=== PATIENT | male | born 1955 | race Caucasian/White ===

== ENCOUNTER → 2017-02-22 | Outpatient (CLI) | payer OTHER ==
[~2017-02-22] MED LIST: BISA-49 PO; FURO20TA3 PO; LEVO100T5 PO; LEVO125T5 PO; METO50TA82 PO; MULT-658 PO; VALS1TAB28 PO
== END | disposition home or self-care (01) ==
LOC: RAD 12:44
PROVIDERS: ATTEND Internal Medicine Cardiovascular Disease
DX: I10 Essential (primary) hypertension (principal); R07.89 Other chest pain
CPT/HCPCS: 78452; 93017; A9502

== ENCOUNTER 2017-05-17 10:25 | Inpatient (IN) | payer OTHER ==
[~2017-05-17] VITALS: Ht 175.3 cm; Wt 121.0 kg
[~2017-05-17 10:25] MED LIST changes: +BUPIVACAINE/PF-EPI 0.5% 1:200K ONE; +TAMS-11 PO
[2017-05-17] MEDS ORDERED: LACTATED RINGERS 1,000 ML IV SCH (10:58)
[2017-05-17 11:03] VITALS: BP 138/75
[2017-05-17] MEDS ORDERED: SCOPOLAMINE PATCH, 1.5MG PATCH.TD72 TD ONE ×3 (11:25→14:30)
[2017-05-17] MEDS ORDERED: SUGAMMADEX 200 MG/2 ML IVPush ONE ×2 (12:00→14:30)
[2017-05-17] MEDS ORDERED: MIDAZOLAM 1 MG/ML, 2ML ONE (12:11)
[2017-05-17] MEDS ORDERED: FENTANYL PF 250 MCG/5ML ONE (12:11)
[2017-05-17] MEDS ORDERED: METOCLOPRAMIDE 5 MG/ML, 2ML IV PRN (14:00)
[2017-05-17] MEDS ORDERED: ACETAMINOPHEN 325 MG TABLET PO PRN (14:00)
[2017-05-17] MEDS ORDERED: OXYcodone 5 MG/5 ML ORAL.SOL UDC PO PRN (14:00)
[2017-05-17] MEDS ORDERED: ONDANSETRON 2MG/ML, 2ML IVPush PRN ×2 (14:00→14:30)
[2017-05-17] MEDS ORDERED: LABETALOL 5MG/ML, 20ML IV PRN (14:00)
[2017-05-17] MEDS ORDERED: hydrALAzine 20 MG/ML, 1ML IV PRN (14:00)
[2017-05-17] MEDS: LACTATED RINGERS 1,000 ML IV SCH (14:18)
[2017-05-17] MEDS: HYDROmorphone 1 MG/ML, 1ML IV PRN ×4 (14:25→15:08)
[2017-05-17] MEDS ORDERED: HYDROmorphone 1 MG/ML, 1ML ONE ×2 (14:30→14:47)
[2017-05-17] MEDS ORDERED: PROMETHAZINE 25 MG/ML, 1ML IM PRN (14:30)
[2017-05-17] MEDS ORDERED: SCOPOLAMINE PATCH, 1.5MG PATCH.TD72 TD SCH (14:30)
[2017-05-17] MEDS: FENTANYL PF 100 MCG/2ML IV PRN ×3 (14:30→14:59)
[2017-05-17] MEDS ORDERED: ENALAPRILAT 1.25 MG/ML, 2ML IV PRN (14:30)
[2017-05-17] MEDS ORDERED: DIPHENHYDRAMINE 25 MG CAPSULE PO PRN (14:30)
[2017-05-17] MEDS ORDERED: DIPHENHYDRAMINE 50 MG/ML, 1ML IV PRN (14:30)
[2017-05-17] MEDS ORDERED: LORazepam 2 MG/ML, 1ML IV PRN (14:30)
[2017-05-17] MEDS ORDERED: PHENOL THROAT SPRAY BOTTLE MM PRN (14:30)
[2017-05-17] MEDS ORDERED: morphine SULFATE 10 MG/ML, 1ML IVPush PRN (14:30)
[2017-05-17] MEDS ORDERED: PROMETHAZINE 12.5 MG SUPP PR PRN (14:30)
[2017-05-17] MEDS ORDERED: hydrALAzine 20 MG/ML, 1ML IVPush PRN (14:30)
[2017-05-17] MEDS ORDERED: FENTANYL PF 100 MCG/2ML ONE (14:31)
[2017-05-17] MEDS ORDERED: OXYcodone 5 MG/5 ML ORAL.SOL UDC ONE (14:44)
[2017-05-17] MEDS ORDERED: PROPOFOL 10 MG/ML, 20ML ONE (15:55)
[2017-05-17] MEDS ORDERED: SUCCINYLCHOLINE 20 MG/ML, 10ML ONE (15:55)
[2017-05-17] MEDS ORDERED: CEFAZOLIN 1,000 MG ONE (15:55)
[2017-05-17] MEDS ORDERED: ROCURONIUM 10 MG/ML ONE (15:55)
[2017-05-17] MEDS ORDERED: ONDANSETRON 2MG/ML, 2ML ONE (15:55)
[2017-05-17 16:10] VITALS: BP 146/74
[2017-05-17] MEDS: HYDROcodone/APAP 7.5-325MG/15ML UDC PO PRN ×2 (18:01→22:34)
[2017-05-18] VITALS: BP 131/68
[2017-05-18] MEDS: LACTATED RINGERS 1,000 ML IV SCH (00:36)
[2017-05-18] MEDS ORDERED: LACTATED RINGERS 1,000 ML IV SCH (03:18)
[2017-05-18 04:00] VITALS: BP 128/70
[2017-05-18 05:46] LABS: BLOOD UREA NITROGEN 14 mg/dL (7-18)
[2017-05-18] MEDS ORDERED: LEVOTHYROXINE 125 MCG TABLET PO SCH (06:00)
[2017-05-18] MEDS: HYDROcodone/APAP 7.5-325MG/15ML UDC PO PRN ×2 (06:21→10:34)
[2017-05-18 07:38] VITALS: BP 135/68
[2017-05-18] MEDS ORDERED: TAMSULOSIN 0.4 MG CAP.ER.24H PO SCH (09:00)
[2017-05-18] MEDS ORDERED: PANTOPRAZOLE 40 MG IV IVPush SCH (09:00)
== END 2017-05-18 13:50 | disposition home or self-care (01) | DRG 621 ==
LOC: ORIP 10:25 → 4NOR 16:00 → DCLOUNGE 05-18 13:45
PROVIDERS: ADMIT Thoracic Surgery (Cardiothoracic Vascular Surgery); ATTEND Thoracic Surgery (Cardiothoracic Vascular Surgery)
PROC: 0BQS4ZZ (ICD-10-PCS; 2017-05-17)
PROC: 0BQR4ZZ (ICD-10-PCS; 2017-05-17)
PROC: 0DB64Z3 Excision of Stomach, Percutaneous Endoscopic Approach, Vertical (ICD-10-PCS; principal; 2017-05-17 13:00)
DX: E66.01 Morbid (severe) obesity due to excess calories (principal); I10 Essential (primary) hypertension; G47.30 Sleep apnea, unspecified; K44.9 Diaphragmatic hernia without obstruction or gangrene; E89.0 Postprocedural hypothyroidism; Z68.41 Body mass index [BMI] 40.0-44.9, adult; Z90.89 Acquired absence of other organs; Z90.49 Acquired absence of other specified parts of digestive tract; Z82.61 Family history of arthritis; Z82.49 Family history of ischemic heart disease and other diseases of the circulatory system; Z82.3 Family history of stroke
CPT/HCPCS: 36415; 80048; 82040; 85025; J0690; J1170; J2250; J2405; J2704; J3010; C9113; J0330; J7120

== ENCOUNTER → 2017-09-14 | Outpatient (CLI) | payer OTHER ==
[~2017-09-14] MED LIST changes: -BUPIVACAINE/PF-EPI 0.5% 1:200K ONE
[2017-09-14 12:54] LABS: HEMATOCRIT 44.7 % (39.2-51.8); HEMOGLOBIN 14.7 g/dL (13.7-18.0); WHITE BLOOD COUNT 6.1 x10^3/uL (3.4-10)
[2017-09-14 13:04] LABS: ASPARTATE AMINO TRANSFERASE 21 U/L (15-37); BLOOD UREA NITROGEN 18 mg/dL (7-18)
== END | disposition home or self-care (01) ==
LOC: CFH 08:07
PROVIDERS: ATTEND Internal Medicine Cardiovascular Disease
DX: E03.9 Hypothyroidism, unspecified (principal); E78.2 Mixed hyperlipidemia
CPT/HCPCS: 36415; 80053; 80061; 84436; 84443; 84481; 85027

== ENCOUNTER → 2017-11-08 | Outpatient (CLI) | payer OTHER ==
[2017-11-08 12:43] LABS: BASOPHILS # (AUTO) 0.03 x10^3/uL (0-0.1); BASOPHILS % (AUTO) 1 % (0-1); EOSINOPHILS # (AUTO) 0.06 x10^3/uL (0-0.4); EOSINOPHILS % (AUTO) 1 % (1-7); LYMPHOCYTES # (AUTO) 1.49 x10^3/uL (1-3.4); LYMPHOCYTES % (AUTO) 23 % (22-44); MD NO; MEAN CORPUSCULAR HEMOGLOBIN 28.9 pg (27.5-34.5); MEAN CORPUSCULAR HGB CONC 33.1 g/dL (33.2-36.2); MEAN CORPUSCULAR VOLUME 87.3 fL (81-97); MONOCYTES # (AUTO) 0.44 x10^3/uL (0.2-0.8); MONOCYTES % (AUTO) 7 % (2-9); NEUTROPHILS % (AUTO) 69 % (42-75); PLATELET COUNT 216 x10^3/uL (130-400); RED BLOOD COUNT 5.39 x10^6/uL (4.38-5.82); RED CELL DISTRIBUTION WIDTH 14.4 % (9.4-14.8)
[2017-11-08 12:50] LABS: ALBUMIN 3.7 g/dL (3.4-5.0); ANION GAP 5 mmol/L (5-15); CHLORIDE 109 mmol/L (98-107); CHOLESTEROL, TOTAL 139 mg/dL (140-239)
[2017-11-08 13:17] LABS: % IRON SATURATION 23 % (20-55); ALANINE AMINOTRANSFERASE 34 U/L (12-78); ALKALINE PHOSPHATASE 94 U/L (45-117); BILIRUBIN,TOTAL 0.5 mg/dL (0.2-1.0); CHOL/HDL RATIO 3.2; CREATININE 1.02 mg/dL (0.7-1.3); HDL CHOL % 32 % (26-37); HDL CHOLESTEROL (DIRECT) 44 mg/dL (40-60); IRON LEVEL 74 mcg/dL (65-175); LDL CHOLESTEROL,CALCULATED 79 mg/dL (54-169); LDL/HDL RATIO 1.8 (0.5-3.0); PREALBUMIN 26.6 mg/dL (20.0-40.0); TOTAL IRON BINDING CAPACITY 321 mcg/dL (250-450); TOTAL PROTEIN 6.8 g/dL (6.4-8.2); TRANSFERRIN 263 mg/dL (200-360); TRIGLYCERIDES 79 mg/dL (50-200); VLDL CHOLESTEROL 16 mg/dL (0-25)
[2017-11-08 13:22] LABS: FOLATE LEVEL > 20.0 ng/mL (3.1-17.5)
== END ==
LOC: CFH 08:27
PROVIDERS: ATTEND Internal Medicine Cardiovascular Disease
DX: Z01.810 Encounter for preprocedural cardiovascular examination (principal); E03.9 Hypothyroidism, unspecified; E78.2 Mixed hyperlipidemia; I10 Essential (primary) hypertension; E63.9 Nutritional deficiency, unspecified; E56.9 Vitamin deficiency, unspecified; K90.9 Intestinal malabsorption, unspecified; Z98.84 Bariatric surgery status; Z82.49 Family history of ischemic heart disease and other diseases of the circulatory system
CPT/HCPCS: 36415; 80053; 80061; 82306; 82607; 82728; 82746; 83540; 83550; 84134; 84425; 84466; 85025

== ENCOUNTER → 2018-11-19 | Outpatient (CLI) | payer OTHER | END | disposition home or self-care (01) | LOC: CVU 16:14 | PROVIDERS: ATTEND Internal Medicine Cardiovascular Disease | DX: I35.8 Other nonrheumatic aortic valve disorders (principal); I10 Essential (primary) hypertension | CPT/HCPCS: 93306 ==

== ENCOUNTER → 2018-11-29 | Outpatient (CLI) | payer OTHER ==
[2018-11-29 12:54] LABS: ANION GAP 7 mmol/L (5-15); CHLORIDE 105 mmol/L (98-107)
[2018-11-29 13:06] LABS: CALCIUM 9.5 mg/dL (8.5-10.1); CREATININE 0.99 mg/dL (0.7-1.3)
[2018-11-29 13:07] LABS: ALANINE AMINOTRANSFERASE 45 U/L (12-78); ALBUMIN 3.7 g/dL (3.4-5.0); ALKALINE PHOSPHATASE 119 U/L (45-117); BILIRUBIN,TOTAL 0.6 mg/dL (0.2-1.0); CHOL/HDL RATIO 4.3; CHOLESTEROL, TOTAL 160 mg/dL (140-239); HDL CHOL % 23 % (26-37); HDL CHOLESTEROL (DIRECT) 37 mg/dL (40-60); LDL CHOLESTEROL,CALCULATED 88 mg/dL (54-169); LDL/HDL RATIO 2.4 (0.5-3.0); T4 (THYROXINE) 9.1 mcg/dL (4.5-12.1); TOTAL PROTEIN 7.1 g/dL (6.4-8.2); TRIGLYCERIDES 175 mg/dL (50-200); VLDL CHOLESTEROL 35 mg/dL (0-25)
== END | disposition home or self-care (01) ==
LOC: CFH 08:42
PROVIDERS: ATTEND Internal Medicine Cardiovascular Disease
DX: E03.9 Hypothyroidism, unspecified (principal)
CPT/HCPCS: 36415; 80053; 80061; 84436; 84481

== ENCOUNTER 2019-01-02 23:15 | Emergency (ER) | payer OTHER ==
[~2019-01-02] VITALS: Ht 175.3 cm; Wt 108.0 kg
[2019-01-02] MEDS ORDERED: ASPIRIN 81 MG TABLET CHEW ONE (23:55)
[2019-01-03] MEDS ORDERED: ASPIRIN 81 MG TABLET CHEW PO ONE
[2019-01-03] MEDS ORDERED: LACT1CAP5 PO (00:02)
[2019-01-03] MEDS ORDERED: FURO20TA3 PO (00:02)
[2019-01-03] MEDS ORDERED: VALS1TAB22 PO (00:02)
[2019-01-03] MEDS ORDERED: OMEP-110 PO (00:02)
[2019-01-03 00:04] LABS: BASOPHILS # (AUTO) 0.02 x10^3/uL (0-0.1); BASOPHILS % (AUTO) 0 % (0-1); EOSINOPHILS # (AUTO) 0.21 x10^3/uL (0-0.4); EOSINOPHILS % (AUTO) 2 % (1-7); LYMPHOCYTES # (AUTO) 1.37 x10^3/uL (1-3.4); LYMPHOCYTES % (AUTO) 13 % (22-44); MD NO; MEAN CORPUSCULAR HEMOGLOBIN 29.9 pg (27.5-34.5); MEAN CORPUSCULAR HGB CONC 33.7 g/dL (33.2-36.2); MEAN CORPUSCULAR VOLUME 88.7 fL (81-97); MEAN PLATELET VOLUME 7.7 fL (7.4-10.4); MONOCYTES # (AUTO) 0.63 x10^3/uL (0.2-0.8); MONOCYTES % (AUTO) 6 % (2-9); NEUTROPHILS # (AUTO) 8.42 x10^3/uL (1.8-6.8); NEUTROPHILS % (AUTO) 79 % (42-75); PLATELET COUNT 200 x10^3/uL (130-400); RED BLOOD COUNT 5.32 x10^6/uL (4.38-5.82); RED CELL DISTRIBUTION WIDTH 13.9 % (9.4-14.8)
[2019-01-03 00:14] LABS: ALANINE AMINOTRANSFERASE 79 U/L (12-78); ALBUMIN 3.8 g/dL (3.4-5.0); ANION GAP 6 mmol/L (5-15); CALCIUM 8.3 mg/dL (8.5-10.1); CHLORIDE 112 mmol/L (98-107); CREATININE 0.98 mg/dL (0.7-1.3)
--- NOTE | 2019-01-03 00:17 | NUR ---
PT HERE FOR CHEST PAIN THAT STARTED AT 1999. PT MEDICATED WITH ASA. VSS. PT SAYS PAIN HAS IMPROVED TO 5/10. CALL LIGHT IN REACH
[2019-01-03 00:18] LABS: ALKALINE PHOSPHATASE 89 U/L (45-117); BILIRUBIN,TOTAL 1.3 mg/dL (0.2-1.0); TOTAL PROTEIN 6.7 g/dL (6.4-8.2); TROPONIN I < 0.015 ng/mL (0.000-0.045)
[2019-01-03 01:00] VITALS: BP 110/57
--- NOTE | 2019-01-03 01:00 | NUR ---
Patient given discharge instructions and they have confirmed that they understand the instructions. Patient ambulatory with steady gait.
== END 2019-01-03 01:02 | disposition home or self-care (01) ==
LOC: ED 01-03 00:31
DX: R07.2 Precordial pain (principal); I10 Essential (primary) hypertension; E66.9 Obesity, unspecified; Z68.35 Body mass index [BMI] 35.0-35.9, adult
CPT/HCPCS: 36415; 71045; 80053; 84484; 85025; 93005; 99284

== ENCOUNTER 2019-01-04 12:44 | Inpatient (IN) | payer OTHER ==
[~2019-01-04] VITALS: Ht 175.3 cm; Wt 105.3 kg
[~2019-01-04 12:44] MED LIST changes: +LACT1CAP5 PO; +OMEP-110 PO; +VALS1TAB22 PO
--- NOTE | 2019-01-04 13:02 | NUR ---
PT BIBA, REPORT TAKEN FROM EMS. SENT FROM [facility] FOR HYPOTENSION AND JAUNDICE. PT NOTES HEADACHE AND DIZZINESS X 2 DAYS. NEURO INTACT. FSBS 81 BEAMER HAND. EKG TAKEN ON ARRIVAL BY EDT. PT ATTACHED TO ALL MONITORS, CALL LIGHT IN REACH. AT BEDSIDE.
--- NOTE | 2019-01-04 13:15 | NUR ---
US AT BEDSIDE.
[2019-01-04 13:21] LABS: MEAN CORPUSCULAR HEMOGLOBIN 29.4 pg (27.5-34.5); MEAN CORPUSCULAR HGB CONC 33.3 g/dL (33.2-36.2); MEAN CORPUSCULAR VOLUME 88.3 fL (81-97); MEAN PLATELET VOLUME 7.8 fL (7.4-10.4); PLATELET COUNT 182 x10^3/uL (130-400); RED BLOOD COUNT 5.17 x10^6/uL (4.38-5.82); RED CELL DISTRIBUTION WIDTH 13.9 % (9.4-14.8)
[2019-01-04 13:29] LABS: ALANINE AMINOTRANSFERASE 271 U/L (12-78); ALBUMIN 3.5 g/dL (3.4-5.0); ANION GAP 7 mmol/L (5-15); CALCIUM 8.1 mg/dL (8.5-10.1); CHLORIDE 106 mmol/L (98-107); CREATININE 1.27 mg/dL (0.7-1.3)
[2019-01-04 13:31] LABS: ALKALINE PHOSPHATASE 139 U/L (45-117); BILIRUBIN,TOTAL 6.8 mg/dL (0.2-1.0); TOTAL PROTEIN 6.3 g/dL (6.4-8.2)
--- NOTE | 2019-01-04 13:35 | NUR ---
PT EDUCATED TO PROVIDE CLEAN CATCH UA, PT UP TO BATHROOM TO VOID, GAIT STEADY.
[2019-01-04 13:44] LABS: BASOPHILS # (AUTO) 0.02 x10^3/uL (0-0.1); BASOPHILS % (AUTO) 0 % (0-1); EOSINOPHILS # (AUTO) 0.15 x10^3/uL (0-0.4); EOSINOPHILS % (AUTO) 2 % (1-7); LYMPHOCYTES # (AUTO) 0.47 x10^3/uL (1-3.4); LYMPHOCYTES % (AUTO) 7 % (22-44); MD SCAN; MONOCYTES # (AUTO) 0.48 x10^3/uL (0.2-0.8); MONOCYTES % (AUTO) 7 % (2-9); NEUTROPHILS # (AUTO) 6.04 x10^3/uL (1.8-6.8); NEUTROPHILS % (AUTO) 84 % (42-75)
--- NOTE | 2019-01-04 13:54 | NUR ---
URINE SENT TO LAB. PT REMAINS A&O, RESPS EVEN AND UNLABORED. 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 PT DENIES PAIN.
--- NOTE | 2019-01-04 14:10 | NUR ---
ERP GRAUSZ AT BEDSIDE.
[2019-01-04] MEDS ORDERED: LABETALOL 5MG/ML, 20ML IVPush PRN (15:00)
[2019-01-04] MEDS ORDERED: TRAZODONE 50MG TABLET PO PRN (15:00)
[2019-01-04] MEDS ORDERED: ONDANSETRON 2MG/ML, 2ML IVPush PRN (15:00)
[2019-01-04] MEDS ORDERED: HYDROmorphone 2 MG/ML, 1ML IVPush PRN (15:00)
[2019-01-04] MEDS ORDERED: ENALAPRILAT 1.25 MG/ML, 2ML IVPush PRN (15:00)
[2019-01-04] MEDS ORDERED: POLYETHYLENE GLYCOL 17 GM PACKET PO PRN (15:00)
[2019-01-04] MEDS ORDERED: BISACODYL 10 MG SUPP PR PRN (15:00)
[2019-01-04] MEDS ORDERED: DOCUSATE 100 MG CAPSULE PO PRN (15:00)
--- NOTE | 2019-01-04 15:09 | NUR ---
hospitalist at bedside.
--- NOTE | 2019-01-04 15:19 | NUR ---
PT TO RADIOLOGY FOR MRCP. PT A&O, RESPS EVEN AND UNLABORED. NO COMPLAINT AT THIS TIME.
--- NOTE | 2019-01-04 15:20 | NUR ---
HOSPITALIST MD GRACIA NOTIFIED MED REC COMPLETE AND NEEDING MD REVIEW.
--- NOTE | 2019-01-04 15:33 | NUR ---
report given to receiving JAYMIE Ragsdale. RN aware of k level 2.8 that has not been replaced yet. pt in MRCP, to be transported directely from [facility] after MRCP.
--- NOTE | 2019-01-04 15:53 | NUR ---
Hospitalist Channing JERONIMO notified that pt has k level 2.8 (not replaced when in ED), and phos level 1.7. notified pt is admitted to non-monitored floor. pt maintained normal sinus rhythm with no ectopy while in ED, pt monitored continuously via court recording monitor while in ED. ok'd pt to be admitted to med-surg, states she will enter orders for k replacement.
[2019-01-04] MEDS ORDERED: POTASSIUM PHOSPHATE 44 MEQ in SODIUM CHLORIDE 0.9% 500 ML IV ONE (16:26)
[2019-01-04] MEDS: POTASSIUM CHLORIDE 20 MEQ in LACTATED RINGERS 1,000 ML IV SCH (18:17)
[2019-01-04 18:53] LABS: MICROSCOPIC NOT IND
[2019-01-04 18:56] LABS: CULTURE INDICATED? NO
[2019-01-04 19:41] VITALS: BP 119/68
[2019-01-04] MEDS: FAMOTIDINE 20 MG/2 ML IVPush SCH (21:25)
[2019-01-05 00:10] VITALS: BP 119/66
[2019-01-05] MEDS: POTASSIUM CHLORIDE 20 MEQ in LACTATED RINGERS 1,000 ML IV SCH ×2 (03:13→13:36)
[2019-01-05 05:41] LABS: BASOPHILS # (AUTO) 0.01 x10^3/uL (0-0.1); BASOPHILS % (AUTO) 0 % (0-1); EOSINOPHILS # (AUTO) 0.16 x10^3/uL (0-0.4); EOSINOPHILS % (AUTO) 3 % (1-7); LYMPHOCYTES # (AUTO) 0.71 x10^3/uL (1-3.4); LYMPHOCYTES % (AUTO) 15 % (22-44); MD NO; MEAN CORPUSCULAR HEMOGLOBIN 30.3 pg (27.5-34.5); MEAN CORPUSCULAR HGB CONC 34.1 g/dL (33.2-36.2); MEAN CORPUSCULAR VOLUME 88.7 fL (81-97); MONOCYTES # (AUTO) 0.46 x10^3/uL (0.2-0.8); MONOCYTES % (AUTO) 10 % (2-9); NEUTROPHILS # (AUTO) 3.45 x10^3/uL (1.8-6.8); NEUTROPHILS % (AUTO) 72 % (42-75); PLATELET COUNT 162 x10^3/uL (130-400); RED BLOOD COUNT 4.75 x10^6/uL (4.38-5.82); RED CELL DISTRIBUTION WIDTH 14.1 % (9.4-14.8)
[2019-01-05 05:54] LABS: ALBUMIN 2.9 g/dL (3.4-5.0); ANION GAP 8 mmol/L (5-15); CALCIUM 8.2 mg/dL (8.5-10.1); CHLORIDE 111 mmol/L (98-107)
[2019-01-05 06:07] LABS: ALANINE AMINOTRANSFERASE 186 U/L (12-78); ALKALINE PHOSPHATASE 128 U/L (45-117); BILIRUBIN,TOTAL 5.6 mg/dL (0.2-1.0); CREATININE 0.87 mg/dL (0.7-1.3); THYROID STIMULATING HORMONE 0.719 mIU/L (0.358-3.740); TOTAL PROTEIN 5.5 g/dL (6.4-8.2)
[2019-01-05 07:19] VITALS: BP 133/74
[2019-01-05] MEDS ORDERED: HYDROCHLOROTHIAZIDE 12.5 MG CAPSULE PO SCH (09:00)
[2019-01-05] MEDS ORDERED: LEVOTHYROXINE 125 MCG TABLET PO SCH (09:00)
[2019-01-05] MEDS ORDERED: VALSARTAN 80 MG TABLET PO SCH (09:00)
[2019-01-05] MEDS ORDERED: OMEPRAZOLE 20 MG CAPSULE.DR PO SCH (09:00)
[2019-01-05] MEDS: FAMOTIDINE 20 MG/2 ML IVPush SCH (11:13)
[2019-01-05] MEDS ORDERED: POTA20TA89 PO (12:20)
[2019-01-08 16:55] LABS: ANA SCREEN NEGATIVE (Negative)
== END 2019-01-05 15:50 | disposition home or self-care (01) | DRG 315 ==
LOC: ED 14:17 → EDIP 14:46 → 3NE 16:25
PROVIDERS: ADMIT Family Medicine; ATTEND Family Medicine
PROC: 0T9B70Z Drainage of Bladder with Drainage Device, Via Natural or Artificial Opening (ICD-10-PCS; principal; 2019-01-04)
DX: I95.9 Hypotension, unspecified (principal); B15.9 Hepatitis A without hepatic coma; E83.39 Other disorders of phosphorus metabolism; E86.1 Hypovolemia; E87.6 Hypokalemia; E89.0 Postprocedural hypothyroidism; G47.30 Sleep apnea, unspecified; I11.0 Hypertensive heart disease with heart failure; K21.9 Gastro-esophageal reflux disease without esophagitis; N40.0 Benign prostatic hyperplasia without lower urinary tract symptoms; Z82.49 Family history of ischemic heart disease and other diseases of the circulatory system; Z85.820 Personal history of malignant melanoma of skin; Z87.442 Personal history of urinary calculi; Z98.84 Bariatric surgery status; E66.9 Obesity, unspecified; Z68.34 Body mass index [BMI] 34.0-34.9, adult
CPT/HCPCS: 36415; 99285; J3490; 74181; 76700; 80053; 80074; 80307; 81003; 83516; 83690; 83735; 84100; 84443; 85025; 86038; 93005; G0378; J3480; J7040; J7120

== ENCOUNTER → 2019-01-08 | Outpatient (CLI) | payer OTHER ==
[~2019-01-08] MED LIST changes: +POTA20TA89 PO
[2019-01-08 09:06] LABS: ANION GAP 4 mmol/L (5-15); CHLORIDE 112 mmol/L (98-107)
[2019-01-08 09:16] LABS: ALANINE AMINOTRANSFERASE 154 U/L (12-78); BILIRUBIN,TOTAL 1.6 mg/dL (0.2-1.0); CALCIUM 8.6 mg/dL (8.5-10.1); CREATININE 0.94 mg/dL (0.7-1.3)
[2019-01-08 09:17] LABS: ALBUMIN 3.2 g/dL (3.4-5.0); ALKALINE PHOSPHATASE 179 U/L (45-117); TOTAL PROTEIN 6.4 g/dL (6.4-8.2)
== END | disposition home or self-care (01) ==
LOC: LAB 08:28
PROVIDERS: ATTEND Family Medicine
DX: R17 Unspecified jaundice (principal)
CPT/HCPCS: 36415; 80053

== ENCOUNTER → 2019-02-04 | Outpatient (CLI) | payer OTHER ==
[2019-02-04 09:01] LABS: BASOPHILS # (AUTO) 0.02 x10^3/uL (0-0.1); BASOPHILS % (AUTO) 0 % (0-1); EOSINOPHILS # (AUTO) 0.13 x10^3/uL (0-0.4); EOSINOPHILS % (AUTO) 2 % (1-7); LYMPHOCYTES # (AUTO) 1.65 x10^3/uL (1-3.4); LYMPHOCYTES % (AUTO) 28 % (22-44); MD NO; MEAN CORPUSCULAR HEMOGLOBIN 29.5 pg (27.5-34.5); MEAN CORPUSCULAR HGB CONC 33.3 g/dL (33.2-36.2); MEAN CORPUSCULAR VOLUME 88.6 fL (81-97); MEAN PLATELET VOLUME 8.1 fL (7.4-10.4); MONOCYTES # (AUTO) 0.38 x10^3/uL (0.2-0.8); MONOCYTES % (AUTO) 7 % (2-9); NEUTROPHILS # (AUTO) 3.72 x10^3/uL (1.8-6.8); NEUTROPHILS % (AUTO) 63 % (42-75); PLATELET COUNT 190 x10^3/uL (130-400); RED BLOOD COUNT 5.26 x10^6/uL (4.38-5.82); RED CELL DISTRIBUTION WIDTH 13.7 % (9.4-14.8)
[2019-02-04 09:07] LABS: ALBUMIN 3.8 g/dL (3.4-5.0); ANION GAP 7 mmol/L (5-15); CALCIUM 8.9 mg/dL (8.5-10.1); CHLORIDE 110 mmol/L (98-107)
[2019-02-04 09:16] LABS: ALANINE AMINOTRANSFERASE 31 U/L (12-78); ALKALINE PHOSPHATASE 94 U/L (45-117); BILIRUBIN,TOTAL 0.8 mg/dL (0.2-1.0); CHOL/HDL RATIO 3.9; CHOLESTEROL, TOTAL 142 mg/dL (140-239); HDL CHOL % 25 % (26-37); HDL CHOLESTEROL (DIRECT) 36 mg/dL (40-60); LDL CHOLESTEROL,CALCULATED 73 mg/dL (54-169); TOTAL PROTEIN 6.8 g/dL (6.4-8.2); TRIGLYCERIDES 165 mg/dL (50-200); VLDL CHOLESTEROL 33 mg/dL (0-25)
[2019-02-04 09:17] LABS: T4 (THYROXINE) 12.2 mcg/dL (4.5-12.1); THYROID STIMULATING HORMONE 0.776 mIU/L (0.358-3.740)
== END | disposition home or self-care (01) ==
LOC: LAB 08:33
PROVIDERS: ATTEND Internal Medicine Cardiovascular Disease
DX: R74.8 Abnormal levels of other serum enzymes (principal); R17 Unspecified jaundice; E03.9 Hypothyroidism, unspecified; E78.2 Mixed hyperlipidemia; I10 Essential (primary) hypertension; R06.2 Wheezing
CPT/HCPCS: 36415; 80053; 80061; 82043; 82570; 84436; 84443; 84481; 85025

== ENCOUNTER → 2019-02-07 | Outpatient (CLI) | payer OTHER | END | disposition home or self-care (01) | LOC: RAD 15:19 | PROVIDERS: ATTEND Nurse Practitioner Family | DX: M17.12 Unilateral primary osteoarthritis, left knee (principal) ==

== ENCOUNTER 2019-03-21 10:27 | Emergency (ER) | payer OTHER ==
[~2019-03-21] VITALS: Ht 175.3 cm; Wt 107.5 kg
[2019-03-21 10:47] VITALS: BP 154/93
[2019-03-21] MEDS ORDERED: DIPH,PERTUSS(ACELL),TET VAC/PF 0.5 ML IM-VACC ONE ×2 (11:00→11:08)
--- NOTE | 2019-03-21 11:33 | NUR ---
PT REFUSES CRUTCHES STATES HAS OWN AT HOME. REFUSES [employer]BIL[employer], MANUELA WRAP APPLIED
--- NOTE | 2019-03-21 11:40 | NUR ---
Patient/Caregiver given discharge instructions and they have confirmed that they understand the instructions. Patient ambulatory with steady gait.
== END 2019-03-21 13:13 | disposition home or self-care (01) ==
LOC: ED 11:40
DX: S51.051A Open bite, right elbow, initial encounter (principal); S83.92XA Sprain of unspecified site of left knee, initial encounter; M17.32 Unilateral post-traumatic osteoarthritis, left knee; I10 Essential (primary) hypertension; Y04.1XXA Assault by human bite, initial encounter; Y93.89 Activity, other specified; Y92.410 Unspecified street and highway as the place of occurrence of the external cause; Y99.8 Other external cause status
CPT/HCPCS: 90471; 90715; 99283

== ENCOUNTER 2019-09-04 08:24 | Day surgery (SDC) | payer OTHER ==
[~2019-09-04] VITALS: Ht 175.3 cm; Wt 104.3 kg
[~2019-09-04 08:24] MED LIST changes: +ASCO250T2 PO; +DOCU-144 PO; +INDOCYANINE GREEN 25 MG VIAL IVPush ONE
[2019-09-04] MEDS ORDERED: INDOCYANINE GREEN 25 MG VIAL ONE (08:54)
[2019-09-04 09:03] VITALS: BP 148/87
[2019-09-04] MEDS ORDERED: LACTATED RINGERS 1,000 ML IV SCH ×2 (09:07→11:12)
[2019-09-04] MEDS ORDERED: FENTANYL PF 250 MCG/5ML ONE (09:35)
[2019-09-04] MEDS ORDERED: MIDAZOLAM 1 MG/ML, 2ML ONE (09:35)
[2019-09-04] MEDS ORDERED: ROCURONIUM 10 MG/ML,10ML ONE (10:25)
[2019-09-04] MEDS ORDERED: CEFAZOLIN 1,000 MG ONE (10:25)
[2019-09-04] MEDS ORDERED: PROPOFOL 10 MG/ML, 20ML ONE (10:25)
[2019-09-04] MEDS ORDERED: ONDANSETRON 2MG/ML, 2ML ONE (10:25)
[2019-09-04] MEDS ORDERED: DEXAMETHASONE 4 MG/ML, 1ML ONE (10:25)
[2019-09-04] MEDS ORDERED: ONDANSETRON 2MG/ML, 2ML IVPush PRN ×2 (11:00→11:30)
[2019-09-04] MEDS ORDERED: KETOROLAC 30 MG/1 ML IV PRN (11:00)
[2019-09-04] MEDS ORDERED: LABETALOL 5MG/ML, 20ML IV PRN (11:00)
[2019-09-04] MEDS ORDERED: PROMETHAZINE 25 MG/ML, 1ML IV PRN (11:00)
[2019-09-04] MEDS ORDERED: HYDROmorphone 1 MG/ML, 1ML INJ IV PRN (11:00)
[2019-09-04] MEDS ORDERED: ALBUTEROL SULFATE 2.5 MG/3 ML NPPB PRN (11:00)
[2019-09-04] MEDS ORDERED: METOCLOPRAMIDE 5 MG/ML, 2ML IV PRN (11:00)
[2019-09-04] MEDS ORDERED: hydrALAzine 20 MG/ML, 1ML IV PRN (11:00)
[2019-09-04] MEDS ORDERED: OXYcodone 5 MG/5 ML ORAL.SOL UDC PO PRN (11:00)
[2019-09-04] MEDS ORDERED: MEPERIDINE/PF 25MG/0.5ML IVPush PRN (11:00)
[2019-09-04] MEDS ORDERED: morphine SULFATE 10 MG/ML, 1ML IVPush PRN (11:30)
[2019-09-04] MEDS ORDERED: HYDROcodone/APAP 5/325 TABLET PO PRN (11:30)
[2019-09-04] MEDS ORDERED: OXYcodone 5 MG/5 ML ORAL.SOL UDC ONE ×2 (11:41→12:00)
[2019-09-04] MEDS ORDERED: KETOROLAC 30 MG/1 ML ONE (11:41)
[2019-09-04] MEDS: OXYcodone 5 MG/5 ML ORAL.SOL UDC PO PRN ×2 (11:46→12:03)
[2019-09-04] MEDS ORDERED: FENTANYL PF 100 MCG/2ML ONE (12:00)
[2019-09-04] MEDS ORDERED: HYDROmorphone 2 MG/ML, 1ML IV PRN (12:00)
[2019-09-04] MEDS: FENTANYL PF 100 MCG/2ML IV PRN ×2 (12:03→12:08)
== END 2019-09-04 14:30 | disposition home or self-care (01) ==
LOC: OUT 08:24
PROVIDERS: ATTEND Thoracic Surgery (Cardiothoracic Vascular Surgery)
DX: K80.12 Calculus of gallbladder with acute and chronic cholecystitis without obstruction (principal); I10 Essential (primary) hypertension; F15.90 Other stimulant use, unspecified, uncomplicated; G47.33 Obstructive sleep apnea (adult) (pediatric); E89.0 Postprocedural hypothyroidism; E66.01 Morbid (severe) obesity due to excess calories; Z68.35 Body mass index [BMI] 35.0-35.9, adult; Z98.890 Other specified postprocedural states; Z90.49 Acquired absence of other specified parts of digestive tract; Z96.612 Presence of left artificial shoulder joint; Z87.442 Personal history of urinary calculi; Z88.8 Allergy status to other drugs, medicaments and biological substances
CPT/HCPCS: 47562; 88304; C1729; J0171; J0690; J1100; J1885; J2250; J2405; J2704; J3010; J7120

== ENCOUNTER 2020-03-30 08:26 | Outpatient (CLI) | payer OTHER ==
[~2020-03-30 08:26] MED LIST changes: -INDOCYANINE GREEN 25 MG VIAL IVPush ONE; -VALS1TAB28 PO; +VALS1TAB29 PO
[2020-03-30 08:43] LABS: BASOPHILS # (AUTO) 0.07 x10^3/uL (0-0.1); BASOPHILS % (AUTO) 1 % (0-1); EOSINOPHILS # (AUTO) 0.13 x10^3/uL (0-0.4); EOSINOPHILS % (AUTO) 2 % (1-7); LYMPHOCYTES # (AUTO) 1.26 x10^3/uL (1-3.4); LYMPHOCYTES % (AUTO) 15 % (22-44); MD NO; MEAN CORPUSCULAR HEMOGLOBIN 30.6 pg (27.5-34.5); MEAN CORPUSCULAR HGB CONC 33.6 g/dL (33.2-36.2); MEAN PLATELET VOLUME 7.6 fL (7.4-10.4); MONOCYTES # (AUTO) 0.48 x10^3/uL (0.2-0.8); MONOCYTES % (AUTO) 6 % (2-9); NEUTROPHILS # (AUTO) 6.52 x10^3/uL (1.8-6.8); NEUTROPHILS % (AUTO) 77 % (42-75); PLATELET COUNT 197 x10^3/uL (130-400); RED BLOOD COUNT 5.17 x10^6/uL (4.38-5.82); RED CELL DISTRIBUTION WIDTH 13.7 % (9.4-14.8)
[2020-03-30 08:54] LABS: ALANINE AMINOTRANSFERASE 36 U/L (12-78); ALBUMIN 3.5 g/dL (3.4-5.0); ANION GAP 7 mmol/L (5-15); CHLORIDE 111 mmol/L (98-107)
[2020-03-30 09:03] LABS: ALKALINE PHOSPHATASE 73 U/L (45-117); BILIRUBIN,TOTAL 0.5 mg/dL (0.2-1.0); CHOLESTEROL, TOTAL 176 mg/dL (140-239); CREATININE 0.98 mg/dL (0.7-1.3); FREE T4 (FREE THYROXINE) 1.07 ng/dL (0.76-1.46); HDL CHOL % 25 % (26-37); HDL CHOLESTEROL (DIRECT) 44 mg/dL (40-60); LDL CHOLESTEROL,CALCULATED 104 mg/dL (54-169); LDL/HDL RATIO 2.4 (0.5-3.0); TOTAL PROTEIN 6.6 g/dL (6.4-8.2); TRIGLYCERIDES 138 mg/dL (50-200); VLDL CHOLESTEROL 28 mg/dL (0-25)
== END 2020-03-30 23:59 | disposition home or self-care (01) ==
LOC: LAB 08:26
PROVIDERS: ATTEND Nurse Practitioner
DX: I10 Essential (primary) hypertension (principal); E03.9 Hypothyroidism, unspecified; E78.2 Mixed hyperlipidemia
CPT/HCPCS: 36415; 80053; 80061; 84439; 84443; 85025

== ENCOUNTER → 2020-04-16 | Outpatient (CLI) | payer OTHER | END | disposition home or self-care (01) | LOC: CVU 14:30 | PROVIDERS: ATTEND Nurse Practitioner | DX: I83.92 Asymptomatic varicose veins of left lower extremity (principal); I87.2 Venous insufficiency (chronic) (peripheral) | CPT/HCPCS: 93970 ==

== ENCOUNTER 2020-08-06 11:20 | Day surgery (SDC) | payer OTHER ==
[~2020-08-06] VITALS: Ht 175.3 cm; Wt 103.2 kg
[~2020-08-06 11:20] MED LIST changes: +ASCO250T12 PO; -ASCO250T2 PO
[2020-08-06 11:48] VITALS: BP 172/80
== END 2020-08-06 14:40 | disposition home or self-care (01) ==
LOC: CACL 11:20
PROVIDERS: ATTEND Internal Medicine Cardiovascular Disease
DX: I83.12 Varicose veins of left lower extremity with inflammation (principal); M19.90 Unspecified osteoarthritis, unspecified site; I10 Essential (primary) hypertension; E03.9 Hypothyroidism, unspecified; E78.2 Mixed hyperlipidemia; G47.33 Obstructive sleep apnea (adult) (pediatric); E66.01 Morbid (severe) obesity due to excess calories; Z68.36 Body mass index [BMI] 36.0-36.9, adult; Z85.828 Personal history of other malignant neoplasm of skin; Z79.899 Other long term (current) drug therapy; Z82.49 Family history of ischemic heart disease and other diseases of the circulatory system
CPT/HCPCS: 36482; C1894

== ENCOUNTER → 2020-08-10 | Outpatient (CLI) | payer OTHER | END | disposition home or self-care (01) | LOC: CVU 08:13 | PROVIDERS: ATTEND Internal Medicine Cardiovascular Disease | DX: I83.92 Asymptomatic varicose veins of left lower extremity (principal) | CPT/HCPCS: 93971 ==

== ENCOUNTER 2020-08-26 17:28 | Emergency (ER) | payer OTHER ==
[~2020-08-26] VITALS: Ht 175.3 cm; Wt 112.8 kg
[2020-08-26 17:48] VITALS: BP 141/86
== END 2020-08-26 18:56 | disposition home or self-care (01) ==
LOC: ED 18:50
DX: S93.602A Unspecified sprain of left foot, initial encounter (principal); I10 Essential (primary) hypertension; X50.1XXA Overexertion from prolonged static or awkward postures, initial encounter; Y93.89 Activity, other specified; Y92.098 Other place in other non-institutional residence as the place of occurrence of the external cause; Y99.8 Other external cause status
CPT/HCPCS: 99283

== ENCOUNTER → 2021-03-01 | Outpatient (CLI) | payer OTHER, MEDICARE ==
[2021-03-01 09:30] LABS: BASOPHILS % (AUTO) 2 % (0-1); EOSINOPHILS % (AUTO) 3 % (1-7); LYMPHOCYTES % (AUTO) 27 % (22-44); MEAN CORPUSCULAR HEMOGLOBIN 29.6 pg (27.5-34.5); MEAN CORPUSCULAR HGB CONC 33.6 g/dL (33.2-36.2); MEAN PLATELET VOLUME 7.9 fL (7.4-10.4); MONOCYTES % (AUTO) 7 % (2-9); NEUTROPHILS % (AUTO) 62 % (42-75); PLATELET COUNT 181 x10^3/uL (130-400); RED BLOOD COUNT 5.27 x10^6/uL (4.38-5.82); RED CELL DISTRIBUTION WIDTH 14.2 % (9.4-14.8)
[2021-03-01 09:35] LABS: MD NO
[2021-03-01 09:45] LABS: ANION GAP 7 mmol/L (5-15); CALCIUM 9.2 mg/dL (8.5-10.1); CHLORIDE 108 mmol/L (98-107)
[2021-03-01 10:14] LABS: % IRON SATURATION 34 % (20-55); ALANINE AMINOTRANSFERASE 40 U/L (12-78); ALKALINE PHOSPHATASE 77 U/L (45-117); BILIRUBIN,TOTAL 0.7 mg/dL (0.2-1.0); CREATININE 0.83 mg/dL (0.7-1.3); FREE T4 (FREE THYROXINE) 1.02 ng/dL (0.76-1.46); IRON LEVEL 121 mcg/dL (65-175); TOTAL IRON BINDING CAPACITY 353 mcg/dL (250-450); TOTAL PROTEIN 7.2 g/dL (6.4-8.2); TRANSFERRIN 251 mg/dL (200-360)
[2021-03-01 10:24] LABS: FOLATE LEVEL > 20.0 ng/mL (3.1-17.5)
[2021-03-01 11:32] LABS: MICROSCOPIC NOT IND
== END | disposition home or self-care (01) ==
LOC: LAB 08:44
PROVIDERS: ATTEND Nurse Practitioner Primary Care
DX: Z13.220 Encounter for screening for lipoid disorders (principal); E78.2 Mixed hyperlipidemia; I10 Essential (primary) hypertension; E55.9 Vitamin D deficiency, unspecified; E78.6 Lipoprotein deficiency; R60.9 Edema, unspecified; G47.30 Sleep apnea, unspecified; R82.90 Unspecified abnormal findings in urine; R79.9 Abnormal finding of blood chemistry, unspecified; Z79.899 Other long term (current) drug therapy
CPT/HCPCS: 36415; 80053; 80061; 81003; 82043; 82306; 82607; 82652; 82728; 82746; 83540; 83550; 83704; 83970; 84100; 84153; 84207; 84425; 84439; 84443; 84466; 84481; 85025; 86376; 86800; G0103

== ENCOUNTER → 2021-04-06 | Outpatient (CLI) | payer OTHER, MEDICARE | END | disposition home or self-care (01) | LOC: RAD 16:39 | PROVIDERS: ATTEND Nurse Practitioner Primary Care | DX: E03.9 Hypothyroidism, unspecified (principal); Z90.49 Acquired absence of other specified parts of digestive tract | CPT/HCPCS: 76536 ==

== ENCOUNTER 2021-06-23 15:21 | Outpatient (CLI) | payer OTHER, MEDICARE ==
[2021-06-23] MEDS ORDERED: TURM500C4 PO (15:57)
[2021-06-23] MEDS ORDERED: VALS1TAB22 PO (15:57)
[2021-06-23] MEDS ORDERED: CA C1TAB60 PO (15:57)
[2021-06-23] MEDS ORDERED: ATOR40TA78 PO (15:57)
[2021-06-23 16:13] LABS: ALBUMIN 3.5 g/dL (3.4-5.0); ANION GAP 4 mmol/L (5-15); CHLORIDE 107 mmol/L (98-107)
[2021-06-23 16:17] LABS: ALANINE AMINOTRANSFERASE 34 U/L (12-78); ALKALINE PHOSPHATASE 81 U/L (45-117); BILIRUBIN,TOTAL 0.5 mg/dL (0.2-1.0); CREATININE 0.87 mg/dL (0.7-1.3)
== END 2021-06-23 23:59 | disposition home or self-care (01) ==
LOC: STAR 15:21
PROVIDERS: ATTEND Orthopaedic Surgery
DX: Z01.818 Encounter for other preprocedural examination (principal); M17.12 Unilateral primary osteoarthritis, left knee
CPT/HCPCS: 36415; 80053; 87081; 93005

== ENCOUNTER 2021-06-30 07:51 | Day surgery (SDC) | payer OTHER, MEDICARE ==
[~2021-06-30] VITALS: Ht 175.3 cm; Wt 111.7 kg
[~2021-06-30 07:51] MED LIST changes: +ACETAMINOPHEN 650 MG/20.3 ML UDC PO PRN; +ATOR40TA78 PO; +BISACODYL 10 MG SUPP PR PRN; +CA C1TAB60 PO; +CEFAZOLIN PMX 2GM/50ML 50 ML IVPB SCH; +DIPHENHYDRAMINE 50 MG CAPSULE PO PRN; +EPINEPHRINE 1 MG/ML, 1ML ONE; +HYDROcodone/APAP 5/325 TABLET PO PRN; +HYDROmorphone 1 MG/ML, 1ML INJ IV PRN; +KETOROLAC 30 MG/1 ML ONE; +MAGNESIUM HYDROXIDE 8%, 30ML UDC PO PRN; +NS + 20MEQ KCL 1,000 ML IV SCH; +ONDANSETRON 2MG/ML, 2ML IV PRN; +ONDANSETRON 4 MG TABLET PO PRN; +OXYcodone IR 5MG TABLET PO PRN; +ROPIvacaine/PF 0.5%, 20 ML ONE; +ROPIvacaine/PF 0.5%, 30 ML ONE; +SENNA/DOCUSATE TABLET PO PRN; +SODIUM CHLORIDE 0.9% 50 ML ONE; +TRANEXAMIC ACID 100 MG/ML, 10ML ONE; +TURM500C4 PO; +VANCOMYCIN 1,000 MG ONE; +ZOLPIDEM 5MG TABLET PO PRN
[2021-06-30] MEDS ORDERED: CHLORHEXIDINE 15 ML UDC ONE (08:11)
[2021-06-30] MEDS ORDERED: GABAPENTIN 300 MG CAPSULE PO ONE (08:30)
[2021-06-30] MEDS ORDERED: CHLORHEXIDINE 15 ML UDC PO ONE (08:30)
[2021-06-30] MEDS ORDERED: LACTATED RINGERS 1,000 ML IV SCH (08:30)
[2021-06-30 08:34] VITALS: BP 154/85
[2021-06-30] MEDS ORDERED: GABAPENTIN 300 MG CAPSULE ONE (08:51)
[2021-06-30] MEDS ORDERED: TAMSULOSIN 0.4 MG CAP.ER.24H PO SCH (09:00)
[2021-06-30] MEDS ORDERED: LEVOTHYROXINE 125 MCG TABLET PO SCH (09:00)
[2021-06-30] MEDS ORDERED: DOCUSATE 100 MG CAPSULE PO SCH (09:00)
[2021-06-30] MEDS ORDERED: ACETAMINOPHEN 500 MG TABLET PO ONE (09:00)
[2021-06-30] MEDS ORDERED: FENTANYL PF 250 MCG/5ML ONE (09:26)
[2021-06-30] MEDS ORDERED: MIDAZOLAM 1 MG/ML, 2ML ONE (09:26)
[2021-06-30] MEDS ORDERED: MIDAZOLAM 1 MG/ML, 2ML IV PRN (11:00)
[2021-06-30] MEDS ORDERED: OXYcodone 5 MG/5 ML ORAL.SOL UDC PO PRN (11:00)
[2021-06-30] MEDS ORDERED: MEPERIDINE/PF 25MG/0.5ML IVPush PRN (11:00)
[2021-06-30] MEDS ORDERED: PROMETHAZINE 25 MG/ML, 1ML IVPush PRN (11:00)
[2021-06-30] MEDS ORDERED: hydrALAzine 20 MG/ML, 1ML IV PRN (11:00)
[2021-06-30] MEDS ORDERED: DIPHENHYDRAMINE 50 MG/ML, 1ML IVPush PRN (11:00)
[2021-06-30] MEDS ORDERED: LIDOCAINE-MPF 2% ,5ML ONE (11:43)
[2021-06-30] MEDS ORDERED: PROPOFOL 10 MG/ML, 20ML ONE (11:43)
[2021-06-30] MEDS ORDERED: ONDANSETRON 2MG/ML, 2ML ONE (11:43)
[2021-06-30] MEDS ORDERED: DEXAMETHASONE 4 MG/ML, 1ML ONE (11:43)
[2021-06-30] MEDS ORDERED: BUPIVACAINE/PF 0.5% ONE (11:43)
[2021-06-30] MEDS ORDERED: CEFAZOLIN 1,000 MG ONE (11:43)
[2021-06-30] MEDS ORDERED: MEPERIDINE/PF 100 MG/ML ONE (11:44)
[2021-06-30] MEDS ORDERED: OXYcodone 5 MG/5 ML ORAL.SOL UDC ONE (11:53)
[2021-06-30] MEDS ORDERED: FENTANYL PF 100 MCG/2ML ONE (11:53)
[2021-06-30] MEDS: FENTANYL PF 100 MCG/2ML IV PRN ×2 (11:55→12:01)
[2021-06-30] MEDS ORDERED: HYDROmorphone 2 MG/ML, 1ML ONE (12:09)
[2021-06-30] MEDS: HYDROmorphone 1 MG/ML, 1ML INJ IVPush PRN ×2 (12:14→12:20)
[2021-06-30] MEDS ORDERED: ASPIRIN 81 MG TABLET EC PO SCH (18:00)
[2021-07-01] MEDS ORDERED: DEXAMETHASONE 4 MG/ML, 1ML IVPush SCH (06:00)
== END 2021-06-30 16:30 | disposition home or self-care (01) ==
LOC: OUT 07:51 → EDSTATUS 10:15 → OUT 16:30
PROVIDERS: ATTEND Orthopaedic Surgery
DX: M17.12 Unilateral primary osteoarthritis, left knee (principal); M25.562 Pain in left knee; I10 Essential (primary) hypertension; G47.33 Obstructive sleep apnea (adult) (pediatric); K21.9 Gastro-esophageal reflux disease without esophagitis; E78.2 Mixed hyperlipidemia; E03.9 Hypothyroidism, unspecified; E66.9 Obesity, unspecified; Z68.36 Body mass index [BMI] 36.0-36.9, adult; Z98.84 Bariatric surgery status; Z98.890 Other specified postprocedural states; Z79.899 Other long term (current) drug therapy
CPT/HCPCS: 27447; 64447; 97110; 97161; 97166; C1713; C1776; J0171; J0690; J1100; J1170; J1885; J2175; J2250; J2405; J2704; J2795; J3010; J3370; J7120